=== PATIENT | male | born 1945 | race African-American/Black ===

== ENCOUNTER 2025-03-11 13:17 | Inpatient (IN) | payer OTHER, MEDICAID ==
[~2025-03-11 13:17] MED LIST: Iopamidol-370 76% 500 ML MDV (1 ML CHARGE) ONE
[2025-03-11 13:36] LABS: #Basophils 0.07 10x3/uL (0.0-0.2); #Eosinophils 0.13 10x3/uL (0.0-0.7); #Monocytes 1.30 10x3/uL (0.11-0.59); #Neutrophils 4.46 10x3/uL (1.40-6.50); %Basophils 0.7 % (0.0-1.0); %Eosinophils 1.2 % (0.0-10.0); %Lymphocytes 43.9 % (21.0-51.0); %Monocytes 12.1 % (0.0-10.0); %Neutrophils 41.5 % (42.0-75.0); Hematocrit 39.0 % (42.0-52.0); Hemoglobin 11.9 g/dL (14.0-18.0); Mean Corpuscular Hemoglobin 26.3 pg (27.0-31.0); Mean Corpuscular Volume 86.3 fL (78.0-98.0); Platelet Count 236 10x3/uL (130-400); Red Blood Cell (RBC) Count 4.52 mill/uL (4.70-6.10); White Blood Cell (WBC) Count 10.73 10x3/uL (4.8-10.8)
[2025-03-11 14:05] LABS: ALT (SGPT) 22 U/L (Less than 45); AST (SGOT) 25 U/L (11-34); Albumin 4.4 g/dL (3.1-4.5); Alkaline Phosphatase 72 U/L (40-110); Anion Gap 22 mmol/L (10-20); BUN (Urea Nitrogen) 19 mg/dL (8.4-25.7); Bilirubin, Total 0.4 mg/dL (0.3-1.2); Calc. Creatinine Clearance 0 mL/min (70-130); Calcium 9.9 mg/dL (7.8-10.44); Carbon Dioxide 17 mmol/L (23-31); Chloride 107 mmol/L (98-107); Globulin 3.5 g/dL (2.4-3.5); Glucose 119 mg/dL (83-110); Potassium 4.3 mmol/L (3.5-5.1); Sodium 142 mmol/L (136-145)
[2025-03-11] MEDS ORDERED: levETIRAcetam 500 MG (5 mL) VIAL ONE (14:14)
[2025-03-11] MEDS ORDERED: Melatonin 3 MG TAB PO PRN (15:49)
[2025-03-11] MEDS ORDERED: Senokot S 8.6-50 MG TAB PO PRN (15:49)
[2025-03-11] MEDS ORDERED: Acetaminophen 325 MG TAB PO PRN (15:49)
[2025-03-11] MEDS ORDERED: hydrALAZINE 20 MG/ML VIAL SLOW IVP PRN (15:49)
[2025-03-11] MEDS ORDERED: Magnesium Sulfate In Water 4 GM in Premix 1 BAG IVPB PRN (19:45)
[2025-03-11] MEDS ORDERED: Potassium Chloride 20 MEQ in Premix 1 BAG IVPB PRN (19:45)
[2025-03-11] MEDS ORDERED: Electrolyte Replacement Protocol 1 EACH FS SCH (19:45)
[2025-03-11] MEDS ORDERED: PHOS-NAK 1 PKT PACK PO PRN (19:45)
[2025-03-11 20:02] VITALS: BMI 33.0
[2025-03-11] MEDS: levETIRAcetam 500 MG (5 mL) VIAL SLOW IVP SCH (22:09)
[2025-03-12 04:02] LABS: #Basophils 0.04 10x3/uL (0.0-0.2); #Eosinophils Less than 0.03 10x3/uL (0.0-0.7); #Monocytes 1.21 10x3/uL (0.11-0.59); #Neutrophils 6.32 10x3/uL (1.40-6.50); %Basophils 0.4 % (0.0-1.0); %Eosinophils 0.1 % (0.0-10.0); %Lymphocytes 21.9 % (21.0-51.0); %Monocytes 12.4 % (0.0-10.0); %Neutrophils 64.9 % (42.0-75.0); Hematocrit 40.3 % (42.0-52.0); Hemoglobin 12.6 g/dL (14.0-18.0); Mean Corpuscular Hemoglobin 26.5 pg (27.0-31.0); Mean Corpuscular Volume 84.8 fL (78.0-98.0); Platelet Count 205 10x3/uL (130-400); Red Blood Cell (RBC) Count 4.75 mill/uL (4.70-6.10); White Blood Cell (WBC) Count 9.75 10x3/uL (4.8-10.8)
[2025-03-12 04:12] LABS: Anion Gap 17 mmol/L (10-20); BUN (Urea Nitrogen) 14 mg/dL (8.4-25.7); Calc. Creatinine Clearance 71 mL/min (70-130); Calcium 9.7 mg/dL (7.8-10.44); Carbon Dioxide 21 mmol/L (23-31); Chloride 106 mmol/L (98-107); Glucose 87 mg/dL (83-110); Magnesium 2.3 mg/dL (1.6-2.6); Potassium 3.6 mmol/L (3.5-5.1); Sodium 140 mmol/L (136-145)
[2025-03-12 06:42] LABS: Cocaine Metabolite Screen Negative (Negative); THC/Cannabinoid Screen PRELIM POSITIVE (Negative); Tricyclic Screen Negative (Negative)
[2025-03-12 06:45] LABS: Bacteria/HPF None Seen HPF (None Seen); Glucose, Urine (Dipstick) Greater than 1000 mg/dL (Negative); Leukocyte 25 Leu/uL (Negative); Protein, Urine (Dipstick) 10 mg/dL (Neg-Trace); RBC/HPF 0-3 HPF (0-3); Specific Gravity, Urine 1.050 (1.002-1.036)
[2025-03-12] MEDS: Folic Acid 1 MG TAB PO SCH (08:34)
[2025-03-12] MEDS: Aspirin 81 mg Enteric Coated Tablet PO SCH (08:34)
[2025-03-12] MEDS: Multivit, Therapeutic 1 TAB PO SCH (08:34)
[2025-03-12 11:15] VITALS: BMI 33.0
[2025-03-12] MEDS: levETIRAcetam 500 MG TAB PO SCH (21:23)
[2025-03-14] MEDS: Carvedilol 6.25 MG TAB PO SCH (09:44)
[2025-03-14] MEDS: Thiamine 100 MG TAB PO SCH (09:45)
[2025-03-14] MEDS: Sacubitril 24MG/Valsartan 26 MG TAB PO SCH (09:45)
[2025-03-14 11:41] VITALS: BP 137/82; TEMP 97.6
[2025-03-14] MEDS ORDERED: Carvedilol 6.25 MG TAB PO SCH (17:00)
== END 2025-03-14 12:35 | disposition home health service (06) | DRG 101 ==
LOC: ERS 13:17 → EDBD 15:50 → PCU 15:50 → ERS 16:56 → OBSVTOIN 03-12 16:09
PROVIDERS: ADMIT Internal Medicine; ATTEND Student in an Organized Health Care Education/Training Program
PROC: XX20X89 Monitoring of Brain Electrical Activity, Computer-aided Detection and Notification, New Technology Group 9 (ICD-10-PCS; principal; 2025-03-11)
DX: G40.409 Other generalized epilepsy and epileptic syndromes, not intractable, without status epilepticus (principal); I69.354 Hemiplegia and hemiparesis following cerebral infarction affecting left non-dominant side; N17.9 Acute kidney failure, unspecified; I65.21 Occlusion and stenosis of right carotid artery; Z95.810 Presence of automatic (implantable) cardiac defibrillator; F03.90 Unspecified dementia, unspecified severity, without behavioral disturbance, psychotic disturbance, mood disturbance, and anxiety; Z79.899 Other long term (current) drug therapy; Z91.148 Patient's other noncompliance with medication regimen for other reason
CPT/HCPCS: 0042T; 36415; 36416; 70450; 70496; 70498; 80048; 80053; 80306; 81003; 81015; 83605; 83735; 84100; 84146; 85025; 93005; 96375; 96376; G0378; J1953; J2060; J3411; J7030; Q9967